=== PATIENT | male | born 1980 | race African-American/Black ===

== ENCOUNTER 2020-10-15 20:12 | Emergency (ER) | payer SELFPAY ==
[~2020-10-15] VITALS: Ht 180.3 cm; Wt 75.0 kg
[2020-10-15] MEDS ORDERED: IBUPROFEN 600MG TABLET PO ONE (21:30)
[2020-10-15 22:03] VITALS: BP 100/70
[2020-10-15] MEDS ORDERED: IBUP-2029 MT (22:26)
== END 2020-10-15 23:09 | disposition home or self-care (01) ==
LOC: ER 20:12
DX: M25.552 Pain in left hip (principal); M25.551 Pain in right hip; Z59.0 Homelessness; Z13.9 Encounter for screening, unspecified
CPT/HCPCS: 72170; 99283